=== PATIENT | female | born 1980 ===

== ENCOUNTER 2017-06-20 14:42 | Inpatient (IN) | payer OTHER ==
[2017-06-20] MEDS ORDERED: fentaNYL* 50 MCG/ML 2 ML VIAL (100 MCG VIAL) ONE (16:30)
[2017-06-20] MEDS ORDERED: Propofol* 100 ML ONE (16:30)
[2017-06-20] MEDS: fentaNYL* 50 MCG/ML 2 ML VIAL (100 MCG VIAL) IV SLOW PU PRN (16:34)
--- NOTE | 2017-06-20 17:02 | HP ---
H&P (Free Text) History and Physical: CRITICAL CARE MEDICINE DATE: 06/20/17 TIME: 1615 PRIMARY CARE PROVIDER: none/unknown REFERRING PROVIDER: Karma Pedroza REASON/CHIEF COMPLAINT: coma HISTORY OF PRESENT ILLNESS: (Received transfer call on pt, and details from that conversation and transfer documentation) 37 year old female with extensive psychiatric history who lives with her mother , unable to awake her today. Biba with relatively normal vitals and spont, sonorous respirations, but not responding to noxious stimuli. I was told there was no response to narcan. Intubated. Head CT neg. Started to move about and place on versed gtt. transferred to [facility]. Per ED provider who d/w pts mother: pt with h/o overdoses. xanax rx 06/05/17 Undergoing tx for hep c currently per records. REVIEW OF SYSTEMS: As per HPI, limited sec to acuity. PAST MEDICAL HISTORY: As per transfer records: gerd, hep c, mrsa colonization MEDICATIONS: Reviewed. ALLERGIES: Reviewed. codeine- hives SOCIAL HISTORY: Reviewed. 1ppd, ?etoh, unclear drug history FAMILY HISTORY: Noncontributory at present. PHYSICAL EXAM: Vital Signs: Reviewed. Hr 70s. NSR. BP stable 130s. RR, on vent with rate 14. able to trigger cpap fine. afeb Neurologic: eyes flutter to verbal stimuli. moving all ext spont and to noxious sternal rub she grabs at me with both hands with intention to remove my hand with bl leg movements and facial grimace. This is after arrival only off versed shortly. Pupils equal and reactive. HEENT: as above. eq, noninjected. 7.[address], 26cm lip. facial piercings. Cardiovascular: S1 S2, no m ; chest piercings. Respiratory: rhonchi bl R>L but no rales nor wheeze Abdomen: thin, soft, nt Extremities: warm no edema. Access: 2 piv; resendiz LABS: Reviewed. ABG 7.28/55/77/25/-2.5/94% on 21%. BMP 144/4/110/27/10/1.0 glu 83. cbc 4.96>14/41<231. salicylates/apap neg; +TCA, benzo. UA neg, HCG neg. IMAGING: Reviewed. CT head read as neg MEDICATIONS: Reviewed but unconfirmed. ASSESSMENT: 37 F Coma on admission Toxic encephalopathy: Polypharmacy - likely benzo related Acute resp failure sec to hypercapnia due to mentation h/o psychiatric disturbance PLAN: Neurologic: improving already with intentional response to noxious stimuli. see if she can wake up more in time. no seizure signs but low threshold for eeg needs, but following clinical improvement currently. Cardiovascular: Perfusing. vol status ok, but gentle ivf. Respiratory: may have mild aspiration and can donna spont on vent, but since likely needing sedation as she awakens will leave her on cmv. vent bundle. repeat cxr here. Gastrointestinal: lfts ok. ogt. sup. Renal/Metabolic: lytes ok and can place on LR and re-eval in am. no met acid or ag. Infectious Disease: no seen infective burden. f/u clincally Hematology: stable. subq prophylaxis. Endocrine: stable. Musculoskeletal: avoid deconditioing Psych/Social: social work. f/u with family. Supportive and preventative care as ordered. Vaccine: f/u needs when they can be clarified. SUP: H2 VTE prophylaxis: heparin Resendiz catheter given critical illness, monitoring needs for accurate assessment of THOMAS and KDIGO criteria for critically ill patients and to avoid potential harms of urinary retention, skin breakdown/ulcers. Disposition: ICU Code Status: Full Critical Care Time: 45min FQuan Valencia DO
--- NOTE | 2017-06-20 17:55 | RAD ---
INDICATION: Post intubation and G tube placement. COMPARISON: None. TECHNIQUE: Single AP portable view of the chest was obtained. FINDINGS: Image quality is compromised due to the relative inferiority of a portable chest x-ray. There is been placement of an endotracheal tube with the tip overlying the right mainstem bronchus. The gastric tube overlies the mediastinum and extends below the diaphragm and out of the [id number]-ul-usyn at the right upper quadrant. The heart and mediastinum exhibit normal size and contour. The lungs are grossly clear. There is no evidence of a large pleural effusion. Visualized bones are normal for the patient's age. IMPRESSION: Interval placement of endotracheal tube and appropriately positioned gastric tube. The tip of the endotracheal tube overlies the right mainstem bronchus and could be retracted approximately 4-5 cm. Findings were reported to Luis Santamaria RN over the telephone at 1750 hours on June 20, 2017.
[2017-06-20] MEDS: Chlorhexidine MOUTHWASH 0.12%* 15 ML UDC TOPICAL SCH ×2 (18:13→21:04)
[2017-06-20] MEDS: Famotidine SUSP* 40 MG/5 ML ORAL.SYRIN G TUBE SCH (18:13)
[2017-06-20] MEDS: Heparin VIAL(*) 5000 UNITS/ML VIAL (FIVE THOUSAND) SUBCUT SCH (21:56)
[2017-06-21] MEDS: LORazepam INJ* 2 MG/ML 1 ML VIAL IV PUSH PRN ×6 (00:50→22:08)
[2017-06-21] MEDS: Chlorhexidine MOUTHWASH 0.12%* 15 ML UDC TOPICAL SCH ×3 (01:00→09:15)
[2017-06-21] MEDS: Heparin VIAL(*) 5000 UNITS/ML VIAL (FIVE THOUSAND) SUBCUT SCH ×3 (05:44→21:41)
[2017-06-21 06:09] LABS: ABS Basophils 0 10^3/ul (0-0.2); ABS Eosinophils 0 10^3/ul (0-0.6); ABS Monocytes 0.3 10^3/ul (0-0.8); ABS Neutrophils 9.6 10^3/ul (1.5-7.7); ABS Nucleated RBC 0 10^3/ul; Eosinophil % 0.2 % (0-6); Hematocrit 39 % (35-47); Hemoglobin 13.5 g/dl (12.0-16.0); Lymphocyte % 8.8 % (25-47); Mean Corpuscular HGB Conc 34 g/dl (31-36); Mean Corpuscular Hemoglobin 30 pg (27-31); Mean Corpuscular Volume 87 fL (80-97); Mean Platelet Volume 7 um3 (7.4-10.4); Nucleated Red Blood Cells % 0; Platelet Count 263 10^3/ul (150-450); Red Blood Count 4.52 10^6/ul (4.0-5.4); Red Cell Distribution Width 14 % (10.5-15)
[2017-06-21 06:24] LABS: EGFR Non-African American 105.6 (>60)
[2017-06-21] MEDS: Propofol* 100 ML IV SCH ×2 (06:31→09:37)
[2017-06-21] MEDS ORDERED: Magnesium Sulfate 2 GM IV* 2 GM/50 ML BAG IVPB ONE (08:22)
[2017-06-21] MEDS: Famotidine SUSP* 40 MG/5 ML ORAL.SYRIN G TUBE SCH (09:16)
--- NOTE | 2017-06-21 10:11 | PN ---
Progress Note - Progress Note Date of Service: 06/21/17 Note: CRITICAL CARE MEDICINE DATE: 06/21/17 TIME: 945 PCP: Layla. PHYSICAL EXAM: Vital Signs: Reviewed. Hr 70s. donna vent. Neurologic: awakens on prop and follow simple commands. HEENT: perrl, 7.[address], 23cm lip. Cardiovascular: S1 S2, no m Respiratory: rhonchi less. Abdomen: thin, soft, nt Extremities: warm no edema. Access: 2 piv; resendiz LABS: Reviewed. IMAGING: Reviewed. CT head read as neg MEDICATIONS: Reviewed but unconfirmed. ASSESSMENT: 37 F Coma on admission Toxic encephalopathy: Polypharmacy - likely benzo related Acute resp failure sec to hypercapnia due to mentation h/o psychiatric disturbance PLAN: Neurologic: improving further. communicating. off prop and liberate. f/u rx needs Cardiovascular: Perfusing. vol status fine. Respiratory: liberate. Gastrointestinal: po later Renal/Metabolic: lytes ok. resendiz out later Infectious Disease: no seen infective burden. f Hematology: stable. subq prophylaxis. Endocrine: stable. Musculoskeletal: avoid deconditioing Psych/Social: social work, f/u with family. Supportive and preventative care as ordered. VTE prophylaxis: heparin Disposition: ICU Code Status: Full Critical Care Time: 35min FQuan Valencia DO
[2017-06-21] MEDS ORDERED: LORazepam INJ* 2 MG/ML 1 ML VIAL IV PUSH PRN (10:23)
[2017-06-21] MEDS ORDERED: LORazepam INJ* 2 MG/ML 1 ML VIAL IV PUSH ONE ×2 (10:31→23:00)
[2017-06-21] MEDS ORDERED: LORazepam INJ* 2 MG/ML 1 ML VIAL ONE (10:32)
[2017-06-21] MEDS ORDERED: Ziprasidone IM INJ* 20 MG/ML VIAL IM PRN (10:32)
[2017-06-21] MEDS ORDERED: Mouth Piece, Nicotine* 1 EACH CARTRIDGE INH PRN (11:11)
[2017-06-21] MEDS ORDERED: Nicotine Inhaler* 10 MG AMP INH PRN (11:11)
[2017-06-21] MEDS ORDERED: Mirtazapine TAB* 15 MG PO PRN (11:12)
[2017-06-21] MEDS ORDERED: Albuterol 2.5 MG/3 ML NEB.SOL* (0.083%) INH PRN (11:14)
--- NOTE | 2017-06-21 11:21 | PN ---
Progress Note - Progress Note Date of Service: 06/21/17 Note: CRITICAL CARE MEDICINE DATE: 06/21/17 TIME: 1100 Pt resp status well post liberation. Communicating but getting agitated and belligerent. Ativan given. She is requesting to leave. States she did nothing wrong. Amnestic to yesterday. Pts mother at bedside trying to explain things to pt and pt not wanting to cooperate. I tried to explained pts current dx and tx; just off propofol and still needing IV benzos. Need time to sort meds. Pt blaming her current Hep C med regimen and adamant that she wants to cess that tx. Again, tried to explain her condition and current treatment but she is not much receptive. Offered nicotine inh and diet currently to see if she can equilibrate in time. Explained that she is not safe to leave hospital presently and we would need at least to tomorrow to determine if she is medically safe. She does not currently hold capacity given mediations, possible even propofol induced delirium, to make clear decisions. Adding back some of her outpt rx regimen but still needs close f/u. ICU care. Disposition: ICU Code Status: Full Critical Care Time: 20min F. Fredrick Valencia DO
[2017-06-21] MEDS: fentaNYL* 50 MCG/ML 2 ML VIAL (100 MCG VIAL) IV SLOW PU PRN ×3 (11:43→22:08)
[2017-06-21] MEDS ORDERED: Ziprasidone CAP* 80 MG PO SCH (12:00)
[2017-06-21] MEDS: Ziprasidone * 20 MG CAP (generic Geodon) PO SCH ×2 (13:25→20:15)
[2017-06-21] MEDS: Diazepam INJ (NF) 5 MG/ML 10 ML VIAL (50 MG TOTAL) IV SCH ×2 (13:25→19:39)
[2017-06-21] MEDS: Gabapentin CAP(*) 300 MG PO SCH ×2 (13:30→20:14)
[2017-06-21] MEDS: busPIRone TAB* 10 MG PO SCH ×2 (13:30→20:14)
[2017-06-21] MEDS: levETIRAcetam TAB* 500 MG PO SCH (20:14)
[2017-06-21] MEDS: buPROPion SR TAB.SR* 150 MG PO SCH (20:14)
[2017-06-21] MEDS ORDERED: Magic Mouth Was-BEN/MAAL/LIDO SWISH SWAL PRN (20:28)
[2017-06-21] MEDS: Omeprazole CAP* 20 MG PO SCH (20:39)
[2017-06-21] MEDS: Nicotine PATCH 14 MG/24 HR* PATCH TRANSDERM SCH (21:22)
[2017-06-22] MEDS: Diazepam INJ (NF) 5 MG/ML 10 ML VIAL (50 MG TOTAL) IV SCH (03:52)
[2017-06-22] MEDS: Heparin VIAL(*) 5000 UNITS/ML VIAL (FIVE THOUSAND) SUBCUT SCH (05:05)
[2017-06-22] MEDS: Gabapentin CAP(*) 300 MG PO SCH (08:48)
[2017-06-22] MEDS: Omeprazole CAP* 20 MG PO SCH (08:48)
[2017-06-22] MEDS: Ziprasidone * 20 MG CAP (generic Geodon) PO SCH (08:48)
[2017-06-22] MEDS: buPROPion SR TAB.SR* 150 MG PO SCH (08:49)
[2017-06-22] MEDS: busPIRone TAB* 10 MG PO SCH (08:49)
[2017-06-22] MEDS: levETIRAcetam TAB* 500 MG PO SCH (08:49)
[2017-06-22] MEDS: Nicotine PATCH 14 MG/24 HR* PATCH TRANSDERM SCH (08:49)
--- NOTE | 2017-06-22 10:42 | PN ---
Progress Note - Progress Note Date of Service: 06/22/17 Note: CRITICAL CARE MEDICINE DATE: 06/22/17 TIME: 955 PHYSICAL EXAM: Vital Signs: Reviewed. Neurologic: communicating fine HEENT: eq Cardiovascular: S1 S2, no m Respiratory: clear Abdomen: soft, nt Extremities: warm LABS: Reviewed. IMAGING: Reviewed. MEDICATIONS: Reviewed. ASSESSMENT: 37 F Coma on admission - resolved Toxic encephalopathy: Polypharmacy - likely benzo related; athough now she tells me she took elavil too Acute resp failure sec to hypercapnia due to mentation - resolved h/o psychiatric disturbance PLAN: received extra ativan overnight but slept. Better this am. ambulating. discussed meds and plans for psych eval. She wants her meds back. Keep regimen as is and have psych eval. Medically stable for dc. Supportive and preventative care as ordered. VTE prophylaxis: heparin can be dcd Disposition: out of unit today; probable psych Code Status: Full Critical Care Time: 25min FQuan Valencia DO
--- NOTE | 2017-06-22 11:26 | DS ---
CRITICAL CARE MEDICINE DISCHARGE SUMMARY ADMISSION DATE: 06/20/2017 ICU ADMISSION DATE: 06/20/2017 ICU DISCHARGE DATE: 06/22/2017 PRIMARY CARE PROVIDER: Gaurav Rich. REFERRING PROVIDER: Karma Pedroza. DIAGNOSIS: 1. Coma on admission. 2. Toxic encephalopathy. 3. Polypharmacy overdose: Benzo primary. 4. Acute resp failure sec to hypercapnia due to mentation requiring mechanical ventilation. 5. Psychiatric disturbance. 6. Tobacco abuse. MEDICATIONS AT DISCHARGE: Per inpatient psych. Current Medications Albuterol (Ventolin 2.5 Mg/3 Ml Neb.Angelina*) 2.5 mg INH Q6H PRN PRN Reason: SOB/WHEEZING Bupropion HCl (Wellbutrin Sr Tab*) 150 mg PO BID [facility] Last Admin: 06/22/17 08:49 Dose: 150 mg Buspirone HCl (Buspar Tab*) 10 mg PO TID [facility] Last Admin: 06/22/17 08:49 Dose: 10 mg Fentanyl Citrate (Fentanyl*) 50 mcg IV SLOW PU Q2H PRN PRN Reason: PAIN Last Admin: 06/21/17 22:08 Dose: 50 mcg Gabapentin (Neurontin Cap(*)) 600 mg PO TID [facility] Last Admin: 06/22/17 08:48 Dose: 600 mg Heparin Sodium (Porcine) (Heparin Vial(*)) 5,000 units SUBCUT Q8HR [facility] Last Admin: 06/22/17 05:05 Dose: Not Given Levetiracetam (Keppra Tab*) 500 mg PO BID [facility] Last Admin: 06/22/17 08:49 Dose: 500 mg Lorazepam (Ativan Inj*) 2 mg IV PUSH Q4H PRN PRN Reason: AGITATION Last Admin: 06/21/17 22:08 Dose: 2 mg Mirtazapine (Remeron Tab*) 15 mg PO BEDTIME PRN PRN Reason: SLEEP Last Admin: 06/21/17 20:15 Dose: 15 mg Multi-Ingredient Mouthwash/Gargle (Magic Mouth Was-Gaurav/Maal/Lido*) 15 ml SWISH SWAL Q4H PRN PRN Reason: MOUTH PAIN Last Admin: 06/21/17 20:47 Dose: 15 ml Nicotine (Nicotine Patch 14 Mg/24 Hr*) 1 patch TRANSDERM DAILY [facility] Last Admin: 06/22/17 08:49 Dose: Not Given Omeprazole (Prilosec Cap*) 40 mg PO DAILY [facility] Last Admin: 06/22/17 08:48 Dose: 40 mg Pharmacy Profile Note (Nicotine Patch Removal Note*) 1 note FOLLOW UP 2100 ANEUDY Ziprasidone (Geodon Im Inj*) 10 mg IM Q8H PRN PRN Reason: AGITATION Last Admin: 06/21/17 17:30 Dose: 10 mg Ziprasidone (Geodon (Generic) *) 40 mg PO BID [facility] Last Admin: 06/22/17 08:48 Dose: 40 mg ALLERGIES: Codeine. HOSPITAL COURSE: 37 Female transfer from [place] emergency department after inability to awaken at home and fear for overdose coma. Requiring mecahnical ventilation. Negative head CT. Awoken more on arrival and supported with time. Liberated from ventilation 06/21 and has stabilized to medical clearance. Needing inpatient psych and medications adjustments. DISPOSITION: U DIET: Regular. ACTIVITY: as tolerated. CODE STATUS: FULL. FOLLOW UP: with treating medical service Aylin Valencia DO
[2017-06-22] MEDS: LORazepam INJ* 2 MG/ML 1 ML VIAL IV PUSH PRN (11:56)
[2017-06-22 12:47] VITALS: BP 106/83
[2017-06-22] MEDS ORDERED: Nicotine Patch Removal NOTE FOLLOW UP SCH (21:00)
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
== END 2017-06-22 14:52 | DRG 812 ==
LOC: ICU 16:18 → BSU 06-22 14:38
PROVIDERS: ADMIT Internal Medicine Critical Care Medicine; ATTEND Internal Medicine Critical Care Medicine
PROC: 5A1945Z Respiratory Ventilation, 24-96 Consecutive Hours (ICD-10-PCS; principal; 2017-06-20)
DX: T42.4X2A Poisoning by benzodiazepines, intentional self-harm, initial encounter (principal); R40.20 Unspecified coma; J96.02 Acute respiratory failure with hypercapnia; G92 Toxic encephalopathy; Y92.9 Unspecified place or not applicable; X58.XXXA Exposure to other specified factors, initial encounter; K21.9 Gastro-esophageal reflux disease without esophagitis; B19.20 Unspecified viral hepatitis C without hepatic coma; F17.210 Nicotine dependence, cigarettes, uncomplicated; Z79.899 Other long term (current) drug therapy; G40.909 Epilepsy, unspecified, not intractable, without status epilepticus; G89.29 Other chronic pain; Z88.6 Allergy status to analgesic agent; Z88.5 Allergy status to narcotic agent; Z81.8 Family history of other mental and behavioral disorders; F31.9 Bipolar disorder, unspecified; F43.10 Post-traumatic stress disorder, unspecified; Z62.810 Personal history of physical and sexual abuse in childhood; F11.11 Opioid abuse, in remission
CPT/HCPCS: 36415; 71045; 80048; 82140; 83735; 84100; 85025; 87641; 93005; 94002; A9270-GY; J1644; J2060; J2704; J3010; J3360; J3475; J3480; J3486

== ENCOUNTER 2017-06-22 12:18 | Inpatient (IN) | payer OTHER ==
[2017-06-22] MEDS ORDERED: Al Hydrox/Mg Hydrox/Simet LIQ* 30 ML UDC PO PRN (12:27)
[2017-06-22] MEDS ORDERED: Albuterol 2.5 MG/3 ML NEB.SOL* (0.083%) INH PRN (12:37)
[2017-06-22] MEDS ORDERED: Ziprasidone CAP* 80 MG PO SCH (13:00)
[2017-06-22] MEDS: lamoTRIgine TAB(*) 25 MG PO SCH (15:36)
[2017-06-22] MEDS: Ziprasidone * 20 MG CAP (generic Geodon) PO SCH ×2 (15:36→20:39)
[2017-06-22] MEDS: Buprenorphine/Naloxone 8-2 MG SL TAB* 1 TAB PO SCH (15:37)
[2017-06-22] MEDS: Fluticasone NASAL SPRAY 50MCG* 16 gm SPRAY BTL BOTH NARES SCH (15:38)
[2017-06-22] MEDS: clonazePAM TAB(*) 0.5 MG PO SCH ×2 (15:38→20:40)
[2017-06-22] MEDS: Gabapentin CAP(*) 300 MG PO SCH ×2 (15:38→20:40)
[2017-06-22] MEDS ORDERED: hydrOXYzine HCL TAB* 50 MG ONE (16:19)
[2017-06-22] MEDS: Nicotine Patch Removal NOTE PATCH OFF SCH (20:41)
[2017-06-22] MEDS: hydrOXYzine HCL TAB* 50 MG PO PRN (20:42)
[2017-06-22] MEDS ORDERED: Mouth Piece, Nicotine* 1 EACH CARTRIDGE ONE (21:00)
[2017-06-22] MEDS: Nicotine Inhaler* 10 MG AMP INH PRN (21:01)
[2017-06-22] MEDS: Nicotine GUM* 2 MG PO PRN (21:02)
[2017-06-22] MEDS: Magic Mouth Was-BEN/MAAL/LIDO SWISH SWAL PRN (21:42)
[2017-06-22] MEDS: Ibuprofen TAB* 600 MG PO PRN (21:45)
[2017-06-23] MEDS: Omeprazole CAP* 20 MG PO SCH (07:30)
[2017-06-23] MEDS: Nicotine PATCH 21 MG/24 HR* PATCH TRANSDERM SCH (07:31)
[2017-06-23] MEDS: Gabapentin CAP(*) 300 MG PO SCH ×3 (07:32→21:15)
[2017-06-23] MEDS: Montelukast Sodium TAB* 10 MG PO SCH (07:33)
[2017-06-23] MEDS: Buprenorphine/Naloxone 8-2 MG SL TAB* 1 TAB PO SCH (07:33)
[2017-06-23] MEDS: Cetirizine* 10 MG TAB PO SCH (07:34)
[2017-06-23] MEDS: clonazePAM TAB(*) 0.5 MG PO SCH ×2 (07:34→13:29)
[2017-06-23] MEDS: lamoTRIgine TAB(*) 25 MG PO SCH (07:34)
[2017-06-23] MEDS: Ziprasidone * 20 MG CAP (generic Geodon) PO SCH ×2 (07:35→21:10)
[2017-06-23] MEDS: Fluticasone NASAL SPRAY 50MCG* 16 gm SPRAY BTL BOTH NARES SCH (07:36)
[2017-06-23] MEDS: hydrOXYzine HCL TAB* 50 MG PO PRN ×4 (07:38→22:10)
[2017-06-23] MEDS: Magic Mouth Was-BEN/MAAL/LIDO SWISH SWAL PRN ×2 (07:39→18:50)
[2017-06-23] MEDS: Ibuprofen TAB* 600 MG PO PRN ×2 (07:39→13:29)
[2017-06-23] MEDS ORDERED: Albuterol/Ipratropium NEB.SOL* Albuterol 2.5 MG/Ipratropium 0.5 MG 3 ML INH SCH (09:00)
[2017-06-23] MEDS: Nicotine Inhaler* 10 MG AMP INH PRN ×3 (13:29→23:05)
[2017-06-23] MEDS: Nicotine GUM* 2 MG PO PRN ×3 (13:29→23:05)
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
[2017-06-23] MEDS: Albuterol HFA INHALER* 8 gm MDI INH PRN (17:05)
[2017-06-23] MEDS: Carisoprodol TAB* 350 MG PO PRN ×2 (17:07→21:11)
[2017-06-23] MEDS: Vitamin B Complex TAB PO SCH ×2 (18:00→18:47)
[2017-06-23] MEDS: Zinc Sulfate CAP* 220 MG PO SCH ×2 (18:00→18:47)
[2017-06-23] MEDS ORDERED: Albuterol/Ipratropium RESP(NF) MDI (Combivent Respimat) INH SCH (19:00)
[2017-06-23] MEDS: busPIRone TAB* 10 MG PO SCH (21:09)
[2017-06-23] MEDS: clonazePAM TAB(*) 1 MG PO SCH (21:11)
[2017-06-23] MEDS: Diclofenac Sodium EC TAB* 25 MG PO PRN (21:14)
[2017-06-23] MEDS: Topiramate TAB(*) 25 MG PO SCH (21:14)
[2017-06-23] MEDS: Mirtazapine TAB* 15 MG PO SCH (21:15)
[2017-06-23] MEDS: Nicotine Patch Removal NOTE PATCH OFF SCH (21:19)
[2017-06-24] MEDS: Diclofenac Sodium EC TAB* 25 MG PO PRN ×3 (01:52→20:39)
[2017-06-24] MEDS: Nicotine PATCH 21 MG/24 HR* PATCH TRANSDERM SCH (07:56)
[2017-06-24] MEDS: Gabapentin CAP(*) 300 MG PO SCH ×3 (07:57→20:26)
[2017-06-24] MEDS: Tiotropium CAP.INH* CAP.INH/18 MCG (USE ORDER SET !) INH SCH (07:58)
[2017-06-24] MEDS: Multivitamins/Minerals TAB PO SCH (08:00)
[2017-06-24] MEDS: clonazePAM TAB(*) 1 MG PO SCH ×3 (08:00→20:27)
[2017-06-24] MEDS: Vitamin B Complex TAB PO SCH (08:00)
[2017-06-24] MEDS: busPIRone TAB* 10 MG PO SCH ×3 (08:00→20:26)
[2017-06-24] MEDS: Montelukast Sodium TAB* 10 MG PO SCH (08:01)
[2017-06-24] MEDS: Buprenorphine/Naloxone 8-2 MG SL TAB* 1 TAB PO SCH (08:01)
[2017-06-24] MEDS: lamoTRIgine TAB(*) 25 MG PO SCH (08:01)
[2017-06-24] MEDS: Fluticasone NASAL SPRAY 50MCG* 16 gm SPRAY BTL BOTH NARES SCH (08:01)
[2017-06-24] MEDS: Omeprazole CAP* 20 MG PO SCH (08:01)
[2017-06-24] MEDS: Zinc Sulfate CAP* 220 MG PO SCH (08:01)
[2017-06-24] MEDS: Ziprasidone * 20 MG CAP (generic Geodon) PO SCH ×2 (08:01→20:26)
[2017-06-24] MEDS: Cetirizine* 10 MG TAB PO SCH (08:05)
[2017-06-24] MEDS: Carisoprodol TAB* 350 MG PO PRN ×4 (08:07→20:38)
[2017-06-24] MEDS: hydrOXYzine HCL TAB* 50 MG PO PRN ×4 (08:07→20:38)
[2017-06-24] MEDS: Magic Mouth Was-BEN/MAAL/LIDO SWISH SWAL PRN ×2 (08:31→21:48)
[2017-06-24] MEDS: Albuterol HFA INHALER* 8 gm MDI INH PRN ×2 (08:32→16:03)
[2017-06-24] MEDS: Nicotine GUM* 2 MG PO PRN ×4 (08:57→20:38)
[2017-06-24] MEDS: Nicotine Inhaler* 10 MG AMP INH PRN ×5 (08:58→20:26)
[2017-06-24] MEDS: Topiramate TAB(*) 25 MG PO SCH ×2 (08:58→20:26)
[2017-06-24] MEDS ORDERED: PIBRENTASVIR PO SCH (09:00)
[2017-06-24] MEDS ORDERED: Spiriva Inhaler DEVICE* 1 EACH DEVICE ONE (09:00)
[2017-06-24] MEDS ORDERED: GLECAPREVIR PO SCH (09:00)
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
--- NOTE | 2017-06-24 11:49 | RAD ---
INDICATION: Altered mental status. COMPARISON: There are no prior studies available for comparison. TECHNIQUE: Contiguous axial sections of the brain were obtained from the skull base to the vertex without contrast. FINDINGS: The ventricles, cisterns and sulci are within normal limits. No significant focal abnormality or mass effect is seen. There is no evidence for hemorrhage. There is mucosal thickening within the visualized portion of the ethmoid air cells and a small air-fluid level is seen in the visualized portion of the left maxillary sinus. The mastoid air cells appear clear. IMPRESSION: 1. NO EVIDENCE FOR ACUTE INTRACRANIAL ABNORMALITY. 2. FINDINGS SUGGESTIVE OF SINUSITIS.
--- NOTE | 2017-06-24 11:57 | RAD ---
INDICATION: Sinusitis, congestion. COMPARISON: There are no prior studies available for comparison. TECHNIQUE: Contiguous axial sections of the axial images of the sinuses were obtained and reconstructed in the coronal and sagittal planes. FINDINGS: The frontal sinuses are hypoplastic. There is mild mucosal thickening within the ethmoid air cells and both maxillary sinuses and a small air-fluid level within the left maxillary sinus. There is a round density in the inferior portion of the right maxillary sinus measuring 1.4 cm in size most consistent with a mucous retention cyst or polyp. There is mucosal plugging and narrowing of the left ostiomeatal complex. There is moderate to severe deviation of the nasal septum toward the right side. The nasal passageways were otherwise clear. IMPRESSION: 1. FINDINGS SUGGESTIVE OF ETHMOID AND MAXILLARY SINUSITIS. 2. MODERATE TO SEVERE NASAL SEPTAL DEVIATION.
[2017-06-24] MEDS: Mirtazapine TAB* 15 MG PO SCH (20:27)
[2017-06-24] MEDS: [UNRECOGNIZED DRUG - REMARK] MT PRN (21:46)
[2017-06-24] MEDS: MAVYRET PO SCH (21:49)
[2017-06-25] MEDS: Nicotine Inhaler* 10 MG AMP INH PRN ×7 (00:10→23:40)
[2017-06-25] MEDS: Nicotine GUM* 2 MG PO PRN ×7 (00:10→23:40)
[2017-06-25] MEDS: hydrOXYzine HCL TAB* 50 MG PO PRN ×3 (00:18→12:10)
[2017-06-25] MEDS: Magic Mouth Was-BEN/MAAL/LIDO SWISH SWAL PRN ×3 (07:31→20:39)
[2017-06-25] MEDS: [UNRECOGNIZED DRUG - REMARK] MT PRN ×3 (07:34→20:39)
[2017-06-25] MEDS: Nicotine PATCH 21 MG/24 HR* PATCH TRANSDERM SCH (08:14)
[2017-06-25] MEDS: Ziprasidone * 20 MG CAP (generic Geodon) PO SCH ×2 (08:15→20:31)
[2017-06-25] MEDS: Omeprazole CAP* 20 MG PO SCH (08:16)
[2017-06-25] MEDS: Nicotine Patch Removal NOTE PATCH OFF SCH ×2 (08:16→23:40)
[2017-06-25] MEDS: Fluticasone NASAL SPRAY 50MCG* 16 gm SPRAY BTL BOTH NARES SCH (08:16)
[2017-06-25] MEDS: Cetirizine* 10 MG TAB PO SCH (08:17)
[2017-06-25] MEDS: clonazePAM TAB(*) 1 MG PO SCH ×3 (08:17→20:32)
[2017-06-25] MEDS: Topiramate TAB(*) 25 MG PO SCH ×2 (08:17→20:33)
[2017-06-25] MEDS: lamoTRIgine TAB(*) 25 MG PO SCH (08:18)
[2017-06-25] MEDS: Gabapentin CAP(*) 300 MG PO SCH (08:18)
[2017-06-25] MEDS: Montelukast Sodium TAB* 10 MG PO SCH (08:19)
[2017-06-25] MEDS: Buprenorphine/Naloxone 8-2 MG SL TAB* 1 TAB PO SCH (08:19)
[2017-06-25] MEDS: Multivitamins/Minerals TAB PO SCH (08:19)
[2017-06-25] MEDS: Tiotropium CAP.INH* CAP.INH/18 MCG (USE ORDER SET !) INH SCH (08:20)
[2017-06-25] MEDS: Albuterol HFA INHALER* 8 gm MDI INH PRN (08:21)
[2017-06-25] MEDS: busPIRone TAB* 10 MG PO SCH ×3 (08:23→20:35)
[2017-06-25] MEDS: Zinc Sulfate CAP* 220 MG PO SCH (08:23)
[2017-06-25] MEDS: Vitamin B Complex TAB PO SCH (08:24)
[2017-06-25] MEDS: Diclofenac Sodium EC TAB* 25 MG PO PRN ×3 (08:24→20:36)
[2017-06-25] MEDS: Carisoprodol TAB* 350 MG PO PRN ×4 (08:26→20:34)
[2017-06-25] MEDS ORDERED: Mouth Piece, Nicotine* 1 EACH CARTRIDGE ONE (11:16)
--- NOTE | 2017-06-25 11:37 | PN ---
[facility]: Group Therapy Note - Service Type Service Type: 56672 Group Psychotherapy - Cognitive Behavioral Group Therapy ( CBT):Patient was attentive and participatory in CBT programming this morning, and remained in good behavioral control. Patient expressed positive insights regarding relevant treatment interventions and goals.
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
[2017-06-25] MEDS: PTO:Albuterol/Ipratropium RESP(NF) MDI (Combivent Respimat) INH SCH ×3 (13:21→20:30)
[2017-06-25] MEDS: Amoxicillin/Clavulanate TAB* 875 MG PO SCH ×2 (13:23→20:35)
[2017-06-25] MEDS: Gabapentin CAP(*) 400 MG PO SCH ×2 (14:23→20:32)
[2017-06-25] MEDS: hydrOXYzine HCL TAB* 25 MG PO PRN ×3 (16:41→23:40)
[2017-06-25] MEDS: MAVYRET PO SCH (18:47)
[2017-06-25] MEDS: Mirtazapine TAB* 15 MG PO SCH (20:30)
[2017-06-26] MEDS: Nicotine Inhaler* 10 MG AMP INH PRN ×6 (03:46→23:25)
[2017-06-26] MEDS: Diclofenac Sodium EC TAB* 25 MG PO PRN ×3 (03:47→20:19)
[2017-06-26] MEDS: hydrOXYzine HCL TAB* 25 MG PO PRN ×2 (03:47→08:14)
[2017-06-26] MEDS: Nicotine GUM* 2 MG PO PRN ×4 (07:26→23:25)
[2017-06-26] MEDS: [UNRECOGNIZED DRUG - REMARK] MT PRN ×2 (07:27→21:21)
[2017-06-26] MEDS: Magic Mouth Was-BEN/MAAL/LIDO SWISH SWAL PRN ×2 (07:27→21:22)
[2017-06-26] MEDS: Nicotine PATCH 21 MG/24 HR* PATCH TRANSDERM SCH (08:06)
[2017-06-26] MEDS: Omeprazole CAP* 20 MG PO SCH (08:07)
[2017-06-26] MEDS: Amoxicillin/Clavulanate TAB* 875 MG PO SCH ×2 (08:08→20:18)
[2017-06-26] MEDS: PTO:Albuterol/Ipratropium RESP(NF) MDI (Combivent Respimat) INH SCH ×4 (08:08→20:17)
[2017-06-26] MEDS: busPIRone TAB* 10 MG PO SCH ×3 (08:09→20:18)
[2017-06-26] MEDS: Buprenorphine/Naloxone 8-2 MG SL TAB* 1 TAB PO SCH (08:09)
[2017-06-26] MEDS: Cetirizine* 10 MG TAB PO SCH (08:09)
[2017-06-26] MEDS: Gabapentin CAP(*) 400 MG PO SCH ×3 (08:10→20:14)
[2017-06-26] MEDS: Fluticasone NASAL SPRAY 50MCG* 16 gm SPRAY BTL BOTH NARES SCH (08:10)
[2017-06-26] MEDS: clonazePAM TAB(*) 1 MG PO SCH ×3 (08:10→20:15)
[2017-06-26] MEDS: lamoTRIgine TAB(*) 25 MG PO SCH (08:11)
[2017-06-26] MEDS: Multivitamins/Minerals TAB PO SCH (08:11)
[2017-06-26] MEDS: Topiramate TAB(*) 25 MG PO SCH ×2 (08:12→20:15)
[2017-06-26] MEDS: Vitamin B Complex TAB PO SCH (08:12)
[2017-06-26] MEDS: Zinc Sulfate CAP* 220 MG PO SCH (08:12)
[2017-06-26] MEDS: Ziprasidone * 20 MG CAP (generic Geodon) PO SCH (08:12)
[2017-06-26] MEDS: Montelukast Sodium TAB* 10 MG PO SCH (08:12)
[2017-06-26] MEDS: Carisoprodol TAB* 350 MG PO PRN ×4 (08:13→21:20)
[2017-06-26 11:57] LABS: ABS Basophils 0 10^3/ul (0-0.2); ABS Eosinophils 0.3 10^3/ul (0-0.6); ABS Lymphocytes 2.5 10^3/ul (1.0-4.8); ABS Monocytes 0.4 10^3/ul (0-0.8); ABS Neutrophils 2.5 10^3/ul (1.5-7.7); ABS Nucleated RBC 0 10^3/ul; Hematocrit 42 % (35-47); Hemoglobin 13.9 g/dl (12.0-16.0); Lymphocyte % 43.8 % (25-47); Mean Corpuscular HGB Conc 33 g/dl (31-36); Mean Corpuscular Hemoglobin 30 pg (27-31); Mean Corpuscular Volume 89 fL (80-97); Mean Platelet Volume 7 um3 (7.4-10.4); Nucleated Red Blood Cells % 0.1; Platelet Count 331 10^3/ul (150-450); Red Blood Count 4.71 10^6/ul (4.0-5.4); Red Cell Distribution Width 14 % (10.5-15); White Blood Count 5.7 10^3/ul (3.5-10.8)
[2017-06-26] MEDS: cloNIDine TAB* 0.1 MG PO PRN ×3 (12:23→21:20)
[2017-06-26 12:25] LABS: INR 0.94 (0.77-1.02)
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
[2017-06-26] MEDS: MAVYRET PO SCH (18:25)
[2017-06-26] MEDS: Mirtazapine TAB* 15 MG PO SCH (20:16)
[2017-06-26] MEDS ORDERED: Ziprasidone CAP* 80 MG PO SCH (21:00)
[2017-06-26] MEDS: Nicotine Patch Removal NOTE PATCH OFF SCH (21:39)
[2017-06-27] MEDS: Omeprazole CAP* 20 MG PO SCH (07:44)
[2017-06-27] MEDS: Nicotine Inhaler* 10 MG AMP INH PRN ×2 (08:11→11:24)
[2017-06-27] MEDS: Amoxicillin/Clavulanate TAB* 875 MG PO SCH (08:12)
[2017-06-27] MEDS: Buprenorphine/Naloxone 8-2 MG SL TAB* 1 TAB PO SCH (08:12)
[2017-06-27] MEDS: busPIRone TAB* 10 MG PO SCH ×2 (08:14→13:07)
[2017-06-27] MEDS: clonazePAM TAB(*) 1 MG PO SCH ×2 (08:14→13:06)
[2017-06-27] MEDS: Cetirizine* 10 MG TAB PO SCH (08:14)
[2017-06-27] MEDS: Gabapentin CAP(*) 400 MG PO SCH ×2 (08:14→13:06)
[2017-06-27] MEDS: Multivitamins/Minerals TAB PO SCH (08:16)
[2017-06-27] MEDS: Montelukast Sodium TAB* 10 MG PO SCH (08:16)
[2017-06-27] MEDS: lamoTRIgine TAB(*) 25 MG PO SCH (08:16)
[2017-06-27] MEDS: Zinc Sulfate CAP* 220 MG PO SCH (08:17)
[2017-06-27] MEDS: Topiramate TAB(*) 25 MG PO SCH (08:17)
[2017-06-27] MEDS: Vitamin B Complex TAB PO SCH (08:17)
[2017-06-27] MEDS: Albuterol HFA INHALER* 8 gm MDI INH PRN (08:20)
[2017-06-27] MEDS: Fluticasone NASAL SPRAY 50MCG* 16 gm SPRAY BTL BOTH NARES SCH (08:21)
[2017-06-27] MEDS: PTO:Albuterol/Ipratropium RESP(NF) MDI (Combivent Respimat) INH SCH ×2 (08:21→12:41)
[2017-06-27] MEDS: Nicotine GUM* 2 MG PO PRN (08:22)
[2017-06-27] MEDS: Carisoprodol TAB* 350 MG PO PRN ×2 (08:23→12:42)
[2017-06-27] MEDS: Diclofenac Sodium EC TAB* 25 MG PO PRN ×2 (08:29→12:41)
[2017-06-27] MEDS: cloNIDine TAB* 0.1 MG PO PRN ×2 (08:40→13:08)
[2017-06-27 08:42] VITALS: BP 116/64
[2017-06-27] MEDS ORDERED: Ziprasidone * 20 MG CAP (generic Geodon) PO SCH (09:00)
[2017-06-27] MEDS: Nicotine PATCH 21 MG/24 HR* PATCH TRANSDERM SCH (09:56)
[2017-06-27] MEDS: Magic Mouth Was-BEN/MAAL/LIDO SWISH SWAL PRN (09:59)
--- NOTE | 2017-06-27 12:00 | PN ---
MHU: Group Therapy Note - Service Type Service Type: [id number] Group Psychotherapy - Cognitive Behavioral Group Therapy ( CBT):Patient was attentive and participatory in CBT programming this morning, and remained in good behavioral control. Patient expressed positive insights regarding relevant treatment interventions and goals.
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
== END 2017-06-27 15:05 | disposition home or self-care (01) | DRG 753 ==
LOC: BSU 14:54
PROVIDERS: ADMIT Psychiatry & Neurology Psychiatry; ATTEND Psychiatry & Neurology Psychiatry
PROC: GZHZZZZ Group Psychotherapy (ICD-10-PCS; principal; 2017-06-25)
DX: F31.63 Bipolar disorder, current episode mixed, severe, without psychotic features (principal); F11.20 Opioid dependence, uncomplicated; G40.909 Epilepsy, unspecified, not intractable, without status epilepticus; B19.20 Unspecified viral hepatitis C without hepatic coma; G89.29 Other chronic pain; M54.9 Dorsalgia, unspecified; M54.2 Cervicalgia; K21.9 Gastro-esophageal reflux disease without esophagitis; G43.909 Migraine, unspecified, not intractable, without status migrainosus; J44.9 Chronic obstructive pulmonary disease, unspecified; J30.1 Allergic rhinitis due to pollen; Z62.810 Personal history of physical and sexual abuse in childhood; R45.84 Anhedonia; F41.9 Anxiety disorder, unspecified; F17.210 Nicotine dependence, cigarettes, uncomplicated; L65.9 Nonscarring hair loss, unspecified; R45.850 Homicidal ideations; R09.82 Postnasal drip; J01.90 Acute sinusitis, unspecified; Z88.6 Allergy status to analgesic agent
CPT/HCPCS: 36415; 70450; 70486; 80061; 80076; 83036; 85025; 85610; 87522; 90853; 94640; 99231; 99238; A9270-GY